=== PATIENT | female | born 1965 | race Caucasian/White ===

== ENCOUNTER 2016-11-15 22:43 | Emergency (ER) | payer OTHER ==
[~2016-11-15] VITALS: Ht 170.2 cm; Wt 149.7 kg
[~2016-11-15 22:43] MED LIST: BUTO10SP NS
[2016-11-15 22:59] VITALS: BP 114/74
--- NOTE | 2016-11-15 23:09 | NUR ---
PT AMBULATED TO OF
--- NOTE | 2016-11-15 23:46 | NUR ---
Patient being evaluated by physician.
[2016-11-16 00:40] VITALS: BP 121/77
--- NOTE | 2016-11-16 00:40 | NUR ---
Patient discharged with v/s stable. Written and verbal after care instructions given and explained. Patient alert, oriented and verbalized understanding of instructions. Ambulatory with steady gait. All questions addressed prior to discharge. ID band removed. Patient advised to follow up with PMD. Rx of Phenergan with Codeine syrup given. Patient educated on indication of medication including possible reaction and side effects. Opportunity to ask questions provided and answered.
== END 2016-11-16 00:40 | disposition home or self-care (01) ==
LOC: MED 22:43
DX: J06.9 Acute upper respiratory infection, unspecified (principal); F17.210 Nicotine dependence, cigarettes, uncomplicated; Z79.899 Other long term (current) drug therapy; Z88.5 Allergy status to narcotic agent
CPT/HCPCS: 99283

== ENCOUNTER 2016-11-28 17:30 | Emergency (ER) | payer OTHER ==
[~2016-11-28] VITALS: Ht 170.2 cm; Wt 159.8 kg
[2016-11-28 17:36] VITALS: BP 154/99
--- NOTE | 2016-11-28 18:28 | NUR ---
PATIENT PRESENTS TO ED WITH MIGRAINE THAT STARTED YESTERDAY. PT C/O FRONTAL PAIN. PT STATES SHE HAS NOT TAKEN ANY MEDICATION FOR PAIN RELIEF . DENIES N/V/D; SKIN IS PINK/WARM/DRY; AAOX4 WITH EVEN AND STEADY GAIT; LUNGS CLEAR BL; HR EVEN AND REGULAR; PT DENIES ANY FEVER, CP, SOB, OR COUGH AT THIS TIME; PATIENT STATES PAIN OF 0/10 AT THIS TIME; VSS; PATIENT POSITIONED FOR COMFORT; HOB ELEVATED; BEDRAILS UP X2; BED DOWN. ER MD MADE AWARE OF PT STATUS.
--- NOTE | 2016-11-28 18:28 | NUR ---
PT TO BED 8 AT THIS TIME. Addendum: 11/28/16 at 1831 by WILBUR PATIENT TO BED 7 AT THIS TIME.
--- NOTE | 2016-11-28 18:53 | NUR ---
DR. ROSENBERG PRESENT AT PT BEDSIDE.
[2016-11-28 19:03] VITALS: BP 154/99
--- NOTE | 2016-11-28 19:03 | NUR ---
Patient discharged with v/s stable. Written and verbal after care instructions given and explained. Patient alert, oriented and verbalized understanding of instructions. Ambulatory with steady gait. All questions addressed prior to discharge. ID band removed. Patient advised to follow up with PMD. Rx of BUTORPHANOL TARTRATE given. Patient educated on indication of medication including possible reaction and side effects. Opportunity to ask questions provided and answered.
== END 2016-11-28 19:03 | disposition home or self-care (01) ==
LOC: MED 17:30
DX: G43.909 Migraine, unspecified, not intractable, without status migrainosus (principal); R11.0 Nausea; H53.149 Visual discomfort, unspecified; Z88.5 Allergy status to narcotic agent; Z79.899 Other long term (current) drug therapy
CPT/HCPCS: 99283

== ENCOUNTER 2017-01-09 06:10 | Emergency (ER) | payer OTHER ==
[~2017-01-09] VITALS: Ht 170.2 cm; Wt 149.7 kg
[2017-01-09 06:17] VITALS: BP 152/83
--- NOTE | 2017-01-09 06:23 | NUR ---
PT TAKEN TO BED 5
--- NOTE | 2017-01-09 06:24 | NUR ---
Dr. Roque evaluating patient at bedside.
[2017-01-09 06:30] VITALS: BP 152/83
--- NOTE | 2017-01-09 06:33 | NUR ---
PATIENT PRESENTS TO ED WITH c/o headache . PT DENIES N/V/D; SKIN IS PINK/WARM/DRY; AAOX4 WITH EVEN AND STEADY GAIT; LUNGS CLEAR BL; HR EVEN AND REGULAR; PT DENIES ANY FEVER, CP, SOB, OR COUGH AT THIS TIME; PATIENT STATES PAIN OF 7/10 AT THIS TIME; VSS; PATIENT POSITIONED FOR COMFORT; HOB ELEVATED; BEDRAILS UP X2; BED DOWN. ER MD MADE AWARE OF PT STATUS.
--- NOTE | 2017-01-09 06:38 | NUR ---
Patient discharged with v/s stable. Written and verbal after care instructions given and explained. Patient alert, oriented and verbalized understanding of instructions. Ambulatory with steady gait. All questions addressed prior to discharge. ID band removed. Patient advised to follow up with PMD. Rx of Mutorphanol tartrate given. Patient educated on indication of medication including possible reaction and side effects. Opportunity to ask questions provided and answered.
== END 2017-01-09 06:38 | disposition home or self-care (01) ==
LOC: MED 06:10
DX: G89.4 Chronic pain syndrome (principal); F17.200 Nicotine dependence, unspecified, uncomplicated; Z88.5 Allergy status to narcotic agent; Z90.89 Acquired absence of other organs; Z90.49 Acquired absence of other specified parts of digestive tract
CPT/HCPCS: 99283

== ENCOUNTER 2017-10-23 20:46 | Emergency (ER) | payer OTHER ==
[~2017-10-23] VITALS: Ht 170.2 cm; Wt 165.7 kg
[2017-10-23 20:46] VITALS: BP 154/69
--- NOTE | 2017-10-23 21:24 | NUR ---
Dr. Gonzalez evaluating patient at bedside.
--- NOTE | 2017-10-23 21:30 | NUR ---
PT BIB SELF C/O HEADACHE AND COUGH. PT AWAKE AND ACTING APPROPRIATE, APPEARS TO BE IN NO ACUTE DISTRESS AT THIS TIME. PERRL. BL BS CLEAR THROUGH OUT, RR EVEN AND UNLABORED.
[2017-10-23 21:48] VITALS: BP 157/106
--- NOTE | 2017-10-23 21:52 | NUR ---
Patient discharged with v/s stable. Written and verbal after care instructions given and explained. Patient alert, oriented and verbalized understanding of instructions. Ambulatory with steady gait. All questions addressed prior to discharge. ID band removed. Patient advised to follow up with PMD. Rx of PROMETHAZINE WITH CODEINE AND BUTORPHANOL given. Patient educated on indication of medication including possible reaction and side effects. Opportunity to ask questions provided and answered.
== END 2017-10-23 21:52 | disposition home or self-care (01) ==
LOC: MED 20:46 → EDUNIT# 20:46 → MED 21:52
DX: G43.909 Migraine, unspecified, not intractable, without status migrainosus (principal); J06.9 Acute upper respiratory infection, unspecified
CPT/HCPCS: 99283

== ENCOUNTER 2019-01-09 21:14 | Emergency (ER) | payer OTHER ==
[~2019-01-09] VITALS: Ht 167.6 cm; Wt 145.1 kg
[2019-01-09 21:15] VITALS: BP 160/85
== END 2019-01-09 21:58 | disposition left against medical advice (07) ==
LOC: MED 21:14
DX: R05 Cough (principal); R51 Headache; Z53.21 Procedure and treatment not carried out due to patient leaving prior to being seen by health care provider

== ENCOUNTER 2019-01-24 18:52 | Emergency (ER) | payer OTHER ==
[~2019-01-24] VITALS: Ht 170.2 cm; Wt 145.1 kg
[2019-01-24 18:59] VITALS: BP 122/74
--- NOTE | 2019-01-24 19:15 | NUR ---
53/F presents to ED, c/o cough x1 week. denies fever/chills. Pt also c/o lower back pain, s/p cleaning around the house last night. No trauma/injury, no bruising/swelling/erythema noted. Pt awake and alert, skin normal color warm and dry, rr even and unlabored. lung sounds clear bl. hr even and regular. Hx sciatica, slipped disc, cigarette smoker (1 pack per 3-4 days) Otc naproxen and tylenol without relief
--- NOTE | 2019-01-24 19:36 | NUR ---
1913-- PT TAKEN TO RAD VIA W/C 1918-- PT RETURNED FROM RAD VIA WC
--- NOTE | 2019-01-24 19:50 | NUR ---
ISAAC ALBERTO EVALUATING PT
[2019-01-24] MEDS ORDERED: DEXAMETHASONE 10 MG/ML VIAL IM ONE (20:00)
[2019-01-24] MEDS ORDERED: KETOROLAC 30 MG/ML VIAL IM ONE (20:00)
[2019-01-24 20:22] VITALS: BP 122/74
--- NOTE | 2019-01-24 20:23 | NUR ---
Patient discharged with v/s stable. Written and verbal after care instructions given and explained. Patient alert, oriented and verbalized understanding of instructions. Ambulatory with to car. All questions addressed prior to discharge. ID band removed. Patient advised to follow up with PMD. Rx of ALBUTEROL, PREDNISONE, AND PROMETHAZINE/CODEINE given. Patient educated on indication of medication including possible reaction and side effects. Opportunity to ask questions provided and answered.
== END 2019-01-24 20:23 | disposition home or self-care (01) ==
LOC: MED 18:52
DX: S39.012A Strain of muscle, fascia and tendon of lower back, initial encounter (principal); J40 Bronchitis, not specified as acute or chronic; Z79.899 Other long term (current) drug therapy; Z88.5 Allergy status to narcotic agent; X58.XXXA Exposure to other specified factors, initial encounter; Y93.E5 Activity, floor mopping and cleaning; Y92.009 Unspecified place in unspecified non-institutional (private) residence as the place of occurrence of the external cause; Y99.8 Other external cause status
CPT/HCPCS: 71045; 96372; 99283; J1100; J1885

== ENCOUNTER 2019-01-27 16:42 | Emergency (ER) | payer OTHER ==
[~2019-01-27] VITALS: Ht 170.2 cm; Wt 145.1 kg
[2019-01-27 16:55] VITALS: BP 133/76
[2019-01-27 17:49] VITALS: BP 133/76
== END 2019-01-27 17:48 | disposition home or self-care (01) ==
LOC: MED 16:42
DX: G43.909 Migraine, unspecified, not intractable, without status migrainosus (principal); Z76.5 Malingerer [conscious simulation]; Z90.49 Acquired absence of other specified parts of digestive tract; Z79.899 Other long term (current) drug therapy; Z88.5 Allergy status to narcotic agent
CPT/HCPCS: 99282

== ENCOUNTER 2019-02-18 16:46 | Emergency (ER) | payer OTHER ==
[~2019-02-18] VITALS: Ht 170.2 cm; Wt 136.1 kg
[2019-02-18 17:06] VITALS: BP 143/80
--- NOTE | 2019-02-18 17:10 | NUR ---
PT TO ER LOBBY, PT ALERT AND AWAKE.
[2019-02-18 18:15] VITALS: BP 143/80
--- NOTE | 2019-02-18 18:15 | NUR ---
PT TAKEN TO BED 7.
--- NOTE | 2019-02-18 18:15 | NUR ---
53 Y/O FEMALE C/OCOLD SYMPTOMS X 4 DAYS; COUGHING, SNEEZING, RUNNY NOSE, LEFT EARACHE. PAIN IS ACUTE 5/10. LUNG SOUNDS CLEAR/DIMINISHED THROUGHOUT. COUGH IS PRODUCTIVE. A/OX4 FOLLOWS COMMANDS; ERMD MADE AWARE OF STATUS SIDE RAILS X1. WILL CONTINUE TO MONITOR. PMH- ARTHRITIS, MIGRAINES RX:DENIES NKDA
--- NOTE | 2019-02-18 19:11 | NUR ---
RECIEVED REPORT FROM LEENA BAÑUELOS. ASSUMED CARE AT THIS TIME.
--- NOTE | 2019-02-18 19:49 | NUR ---
Patient discharged with v/s stable. Written and verbal after care instructions given and explained. Patient alert, oriented and verbalized understanding of instructions. Ambulatory with steady gait. All questions addressed prior to discharge. ID band removed. Patient advised to follow up with PMD. Rx of azithromycin, albuterol, and guiatussien given. Patient educated on indication of medication including possible reaction and side effects. Opportunity to ask questions provided and answered.
== END 2019-02-18 19:49 | disposition home or self-care (01) ==
LOC: MED 16:46
DX: J20.9 Acute bronchitis, unspecified (principal); G43.909 Migraine, unspecified, not intractable, without status migrainosus; M19.90 Unspecified osteoarthritis, unspecified site; Z90.49 Acquired absence of other specified parts of digestive tract; Z79.899 Other long term (current) drug therapy
CPT/HCPCS: 99283

== ENCOUNTER 2019-04-18 22:13 | Emergency (ER) | payer OTHER ==
[~2019-04-18] VITALS: Ht 167.6 cm; Wt 171.0 kg
[2019-04-18 22:19] VITALS: BP 152/93
--- NOTE | 2019-04-18 22:40 | NUR ---
X-Ray at bedside.
--- NOTE | 2019-04-18 23:03 | NUR ---
ATTEMPTED TO FLU SWAB PT, PT STATED "I DON'T WANT THE SWAB DONE, I KNOW I DON'T HAVE THE FLU"
--- NOTE | 2019-04-18 23:17 | NUR ---
BIBS C/O PRODUCTIVE COUGH WITH THICK SPUTUM + HEADACHE X3 DAYS NON PROVOKED. NO SOB/CHEST PAIN REPORTED. LUNG SOUNDS CLEAR BILAT LOBES. NO N/V/D REPORTED. PT DID NOT WANT FLU SWAB PERFORMED, PT STATED "I KNOW I DONT HAVE THE FLU". NKA
[2019-04-18] MEDS ORDERED: HYDROcodone/APAP 5/325 MG 1 TAB TAB PO ONE (23:30)
[2019-04-18] MEDS ORDERED: predniSONE 20 MG TAB PO ONE (23:30)
[2019-04-18] MEDS ORDERED: DEXAMETHASONE 10 MG/ML VIAL PO ONE (23:35)
--- NOTE | 2019-04-18 23:41 | NUR ---
PT IS DRIVING SELF HOME, WILL HOLD Jingshi Wanwei.
[2019-04-18 23:42] VITALS: BP 152/93
--- NOTE | 2019-04-18 23:45 | NUR ---
Patient discharged with v/s stable. Written and verbal after care instructions given and explained. Patient alert, oriented and verbalized understanding of instructions. Ambulatory with steady gait. All questions addressed prior to discharge. ID band removed. Patient advised to follow up with PMD. Rx of AFRIN, NORCO, AZITHROMYCIN given. Patient educated on indication of medication including possible reaction and side effects. Opportunity to ask questions provided and answered.
== END 2019-04-18 23:45 | disposition home or self-care (01) ==
LOC: MED 22:13
DX: J40 Bronchitis, not specified as acute or chronic (principal); Z79.899 Other long term (current) drug therapy; Z90.49 Acquired absence of other specified parts of digestive tract
CPT/HCPCS: 71045; 99283; J1100; J7512

== ENCOUNTER 2019-07-07 10:16 | Emergency (ER) | payer OTHER ==
[~2019-07-07] VITALS: Ht 170.2 cm; Wt 140.6 kg
--- NOTE | 2019-07-07 10:21 | NUR ---
PT TAKEN TO BED 11.
[2019-07-07 10:25] VITALS: BP 154/94
--- NOTE | 2019-07-07 10:28 | NUR ---
53 Y/O FEMALE C/O MIGRAINE HEADACHE SINCE YESTERDAY. STATES 7/10 CONSTANT THROBBING PAIN, DENIES CHANGE OF VISION. STATES SHE TAKES MEDICATION FOR MIGRAINES, TOOK IT WITH NO RELIEF. DENIES N/V/D. AFEBRILE. SITTING UPRIGHT IN CHAIR, RR EVEN AND UNLABORED. CALM AND PLEASANT. VSS MEDHX: MIGRAINES, FIBROMYALGIA
--- NOTE | 2019-07-07 10:37 | NUR ---
DR WIGGINS EXAMINING PT
[2019-07-07 10:57] VITALS: BP 154/94
--- NOTE | 2019-07-07 10:57 | NUR ---
Patient discharged with v/s stable. Written and verbal after care instructions given and explained. Patient alert, oriented and verbalized understanding of instructions. Ambulatory with steady gait. All questions addressed prior to discharge. ID band removed. Patient advised to follow up with PMD. Rx of BUTOPHANOL NASAL SPRAY given. Patient educated on indication of medication including possible reaction and side effects. Opportunity to ask questions provided and answered.
== END 2019-07-07 10:57 | disposition home or self-care (01) ==
LOC: MED 10:16
DX: G43.909 Migraine, unspecified, not intractable, without status migrainosus (principal)
CPT/HCPCS: 99281; 99283

== ENCOUNTER 2019-09-17 19:19 | Emergency (ER) | payer OTHER ==
[~2019-09-17] VITALS: Ht 170.2 cm; Wt 166.5 kg
[2019-09-17 19:24] VITALS: BP 141/95
--- NOTE | 2019-09-17 19:29 | NUR ---
PT AMBULATED CHAIR A.
[2019-09-17 19:32] VITALS: BP 141/95
--- NOTE | 2019-09-17 19:35 | NUR ---
AT BEDSIDE EXAMINING PT
--- NOTE | 2019-09-17 19:38 | NUR ---
PT ELOPED FROM FACILITY
== END 2019-09-17 19:38 | disposition left against medical advice (07) ==
LOC: MED 19:19
DX: G89.29 Other chronic pain (principal); G43.909 Migraine, unspecified, not intractable, without status migrainosus; F11.20 Opioid dependence, uncomplicated; Z76.0 Encounter for issue of repeat prescription; Z79.899 Other long term (current) drug therapy
CPT/HCPCS: 99281

== ENCOUNTER 2019-11-03 18:16 | Emergency (ER) | payer OTHER ==
[~2019-11-03] VITALS: Ht 167.6 cm; Wt 131.5 kg
[2019-11-03 18:33] VITALS: BP 123/52
--- NOTE | 2019-11-03 20:35 | NUR ---
PATIENT LEFT WITHOUT BEING SEEN BY DR. CARLSON. NO FURTHER CARE PROVIDED FOR PATIENT.
== END 2019-11-03 20:53 | disposition left against medical advice (07) ==
LOC: MED 18:16
DX: R05 Cough (principal); Z53.21 Procedure and treatment not carried out due to patient leaving prior to being seen by health care provider

== ENCOUNTER 2020-06-05 22:58 | Emergency (ER) | payer OTHER | END 2020-06-05 23:30 | disposition left against medical advice (07) | LOC: MED 22:58 | DX: R51.9 Headache, unspecified (principal); Z53.21 Procedure and treatment not carried out due to patient leaving prior to being seen by health care provider ==

== ENCOUNTER 2021-01-02 00:28 | Emergency (ER) | payer OTHER ==
[~2021-01-02] VITALS: Ht 170.2 cm; Wt 169.6 kg
[2021-01-02 00:30] VITALS: BP 151/87
== END 2021-01-02 01:10 | disposition left against medical advice (07) ==
LOC: MED 00:28
DX: H92.02 Otalgia, left ear (principal); Z53.21 Procedure and treatment not carried out due to patient leaving prior to being seen by health care provider

== ENCOUNTER 2021-01-11 16:49 | Emergency (ER) | payer OTHER ==
[~2021-01-11] VITALS: Ht 167.6 cm; Wt 166.5 kg
[2021-01-11 17:06] VITALS: BP 154/94
--- NOTE | 2021-01-11 17:12 | NUR ---
PT STATES SHE DOES NOT WANT TO SEE A PA.
--- NOTE | 2021-01-11 17:48 | NUR ---
NO NURSING INTERVENTIONS DONE NO COMPLETE ASSESSMENT NEEDED.
[2021-01-11] MEDS ORDERED: ALBU0.0912 IH (18:13)
[2021-01-11] MEDS ORDERED: FLONAS NS (18:13)
[2021-01-11 18:20] VITALS: BP 154/94
--- NOTE | 2021-01-11 18:20 | NUR ---
Patient discharged with v/s stable. LEFT WITH DISCHARGE INSTRUCTIONS AND NOT GIVEN TO PATIENT. ID BAND REMOVED.
== END 2021-01-11 18:20 | disposition home or self-care (01) ==
LOC: MED 16:49
DX: J01.90 Acute sinusitis, unspecified (principal); J45.909 Unspecified asthma, uncomplicated; I10 Essential (primary) hypertension; E66.9 Obesity, unspecified
CPT/HCPCS: 99282

== ENCOUNTER 2021-04-23 12:41 | Emergency (ER) | payer OTHER ==
[~2021-04-23] VITALS: Ht 157.5 cm; Wt 59.0 kg
[~2021-04-23 12:41] MED LIST changes: +ALBU0.0912 IH; +FLONAS NS
--- NOTE | 2021-04-23 12:54 | NUR ---
PATIENT LEFT WITHOUT BEING SEEN BY DR. KNOX. NO FURTHER CARE PROVIDED FOR PATIENT.
[2021-04-23 13:13] VITALS: BP 143/87
== END 2021-04-23 12:54 | disposition left against medical advice (07) ==
LOC: MED 12:41
DX: R11.2 Nausea with vomiting, unspecified (principal); Z53.21 Procedure and treatment not carried out due to patient leaving prior to being seen by health care provider

== ENCOUNTER 2021-04-29 20:07 | Emergency (ER) | payer OTHER ==
--- NOTE | 2021-04-29 21:04 | NUR ---
CALLED TO TRIAGE FROM LOBBY AND OUTSIDE, NO ANSWER.
--- NOTE | 2021-04-29 21:10 | NUR ---
CALLED IN ER AND OUTSIDE NO ANSWER.
--- NOTE | 2021-04-29 21:13 | NUR ---
LWBS. PT STATES SHE LEFT.
== END 2021-04-29 21:04 | disposition left against medical advice (07) ==
LOC: MED 20:07
DX: R51.9 Headache, unspecified (principal); Z53.21 Procedure and treatment not carried out due to patient leaving prior to being seen by health care provider

== ENCOUNTER 2021-05-06 18:43 | Emergency (ER) | payer OTHER ==
[~2021-05-06] VITALS: Ht 170.2 cm; Wt 175.5 kg
[2021-05-06 19:07] VITALS: BP 143/96
--- NOTE | 2021-05-06 19:10 | NUR ---
PT TAKEN TO CHAIR B
[2021-05-06] MEDS ORDERED: BUTORPHANOL 2 MG/ML VIAL IM ONE (19:20)
[2021-05-06] MEDS ORDERED: ONDANSETRON 4 MG ODT PO ONE (19:20)
--- NOTE | 2021-05-06 19:50 | NUR ---
SEE COMPLETE ASSESSMENT
[2021-05-06] MEDS ORDERED: BUTO10SP10 NS (19:54)
--- NOTE | 2021-05-06 20:02 | NUR ---
Patient discharged with v/s stable. Written and verbal after care instructions given and explained. Patient alert, oriented and verbalized understanding of instructions. Ambulatory with steady gait. All questions addressed prior to discharge. ID band removed. Patient advised to follow up with PMD. Rx of BUTORPHANAL given. Patient educated on indication of medication including possible reaction and side effects. Opportunity to ask questions provided and answered.
== END 2021-05-06 20:02 | disposition home or self-care (01) ==
LOC: MED 18:43
DX: G43.909 Migraine, unspecified, not intractable, without status migrainosus (principal); Z88.5 Allergy status to narcotic agent; Z88.8 Allergy status to other drugs, medicaments and biological substances
CPT/HCPCS: 99283; J0595; Q0162

== ENCOUNTER 2021-05-24 23:39 | Emergency (ER) | payer OTHER ==
[~2021-05-24] VITALS: Ht 167.6 cm; Wt 149.7 kg
[~2021-05-24 23:39] MED LIST changes: +BUTO10SP10 NS
[2021-05-24 23:47] VITALS: BP 153/105
--- NOTE | 2021-05-25 00:07 | NUR ---
pt taken to lobby.
[2021-05-25] MEDS ORDERED: BUTO10SP NS (00:24)
[2021-05-25 00:51] VITALS: BP 153/105
--- NOTE | 2021-05-25 00:51 | NUR ---
Patient discharged with v/s stable. Written and verbal after care instructions given and explained. Patient alert, oriented and verbalized understanding of instructions. Ambulatory with steady gait. All questions addressed prior to discharge. ID band removed. Patient advised to follow up with PMD. Rx of butorphanol tartate given. Patient educated on indication of medication including possible reaction and side effects. Opportunity to ask questions provided and answered.
== END 2021-05-25 00:51 | disposition home or self-care (01) ==
LOC: MED 23:39
DX: G43.909 Migraine, unspecified, not intractable, without status migrainosus (principal); Z79.899 Other long term (current) drug therapy; Z88.5 Allergy status to narcotic agent; Z88.8 Allergy status to other drugs, medicaments and biological substances
CPT/HCPCS: 99283

== ENCOUNTER 2021-06-06 11:40 | Emergency (ER) | payer OTHER ==
[~2021-06-06] VITALS: Ht 167.6 cm; Wt 154.2 kg
[2021-06-06 11:42] VITALS: BP 151/95
--- NOTE | 2021-06-06 11:52 | NUR ---
55 Y/O F AMBULATED TO BED 2 USING CANE OTHERWISE STEADY GAIT, C/O LEFT SIDED MIGRAINE HEADACHE X YESTERDAY. RECENT IN FAMILY CAUSING STRESS AND A LOT OF CRYING. ALLERDIES: MORPHINE, PROCHLORPERAZINE PMD: MIGRAINES, ARTHRITS
--- NOTE | 2021-06-06 12:00 | NUR ---
ISAAC WATSON AT BEDSIDE FOR MSE
[2021-06-06] MEDS ORDERED: DEXA4TAB5 PO (12:23)
[2021-06-06] MEDS ORDERED: BUTO10SP10 NS (12:23)
[2021-06-06 12:39] VITALS: BP 142/80
--- NOTE | 2021-06-06 12:42 | NUR ---
Patient discharged with v/s stable. Written and verbal after care instructions given and explained. Patient alert, oriented and verbalized understanding of instructions. Ambulatory with steady gait. All questions addressed prior to discharge. ID band removed. Patient advised to follow up with PMD. Rx of butorphanol tartrate, dexamethasone given. Patient educated on indication of medication including possible reaction and side effects. Opportunity to ask questions provided and answered.
== END 2021-06-06 12:39 | disposition home or self-care (01) ==
LOC: MED 11:40
DX: G43.909 Migraine, unspecified, not intractable, without status migrainosus (principal); Z79.899 Other long term (current) drug therapy; Z88.5 Allergy status to narcotic agent; Z88.8 Allergy status to other drugs, medicaments and biological substances
CPT/HCPCS: 99283

== ENCOUNTER 2021-07-05 18:39 | Emergency (ER) | payer OTHER ==
[~2021-07-05] VITALS: Ht 167.6 cm; Wt 171.9 kg
[~2021-07-05 18:39] MED LIST changes: +DEXA4TAB5 PO
[2021-07-05 18:50] VITALS: BP 147/61
--- NOTE | 2021-07-05 19:08 | NUR ---
55 y/o F BIB self from home via walker c/o migraine since last night. Patient A&Ox4, states 10/20, throbbing/intermittent, non-radiating headache. States recent stressors of cousin's one year ago. States Naproxen at 1400 today without relief. Patient states she was prescribed butorphanol nasal spray and is requesting a new prescription sent to pharmacy. Patient denies dizziness, n/v/d, blurry vision, hearing loss, syncope, falls. Bed locked in lowest position, side rails x 1. PMH: migraines Meds: A: ultram, sumatriptan (swelling)
--- NOTE | 2021-07-05 19:09 | NUR ---
Report and transfer of care endorse to LEENA Clay.
--- NOTE | 2021-07-05 19:17 | NUR ---
AT BEDSIDE EXAMINING PT.
[2021-07-05] MEDS ORDERED: BUTO10SP10 NS (19:22)
[2021-07-05 19:28] VITALS: BP 147/61
--- NOTE | 2021-07-05 19:28 | NUR ---
Patient discharged with v/s stable. Written and verbal after care instructions given and explained. Patient alert, oriented and verbalized understanding of instructions. Ambulatory with steady gait. All questions addressed prior to discharge. ID band removed. Patient advised to follow up with PMD. Rx of BUTORPHANOL given. Patient educated on indication of medication including possible reaction and side effects. Opportunity to ask questions provided and answered.
== END 2021-07-05 19:28 | disposition home or self-care (01) ==
LOC: MED 18:39
DX: G43.909 Migraine, unspecified, not intractable, without status migrainosus (principal); E66.01 Morbid (severe) obesity due to excess calories; Z63.4 Disappearance and death of family member; Z79.899 Other long term (current) drug therapy; Z88.5 Allergy status to narcotic agent; Z88.8 Allergy status to other drugs, medicaments and biological substances; Z68.44 Body mass index [BMI] 60.0-69.9, adult
CPT/HCPCS: 99283

== ENCOUNTER 2021-08-13 22:30 | Emergency (ER) | payer OTHER ==
[~2021-08-13] VITALS: Ht 170.2 cm; Wt 140.6 kg
[2021-08-13 23:14] VITALS: BP 106/65
--- NOTE | 2021-08-13 23:42 | NUR ---
Patient ambulated to bed 4.
--- NOTE | 2021-08-14 00:08 | NUR ---
Dr. Brown at bedside to exam patient.
--- NOTE | 2021-08-14 00:12 | NUR ---
pt assessment completed by shiela. no nursing interventions required at this time.
[2021-08-14] MEDS ORDERED: DEC4 PO (00:22)
[2021-08-14] MEDS ORDERED: ROBAC PO (00:22)
[2021-08-14 00:35] VITALS: BP 106/65
--- NOTE | 2021-08-14 00:35 | NUR ---
Patient discharged with v/s stable. Written and verbal after care instructions given and explained. Patient alert, oriented and verbalized understanding of instructions. Ambulatory with steady gait via walker. All questions addressed prior to discharge. ID band removed. Patient advised to follow up with PMD. Rx of Dexamethasone and Codeine Phosphate/Guaifenesi given. Patient educated on indication of medication including possible reaction and side effects. Opportunity to ask questions provided and answered.
== END 2021-08-14 00:35 | disposition home or self-care (01) ==
LOC: MED 22:30
DX: Z76.0 Encounter for issue of repeat prescription (principal); M19.90 Unspecified osteoarthritis, unspecified site; Z79.899 Other long term (current) drug therapy; Z88.5 Allergy status to narcotic agent; Z88.8 Allergy status to other drugs, medicaments and biological substances
CPT/HCPCS: 99281

== ENCOUNTER 2021-09-28 21:28 | Emergency (ER) | payer OTHER ==
[~2021-09-28] VITALS: Ht 170.2 cm; Wt 140.6 kg
[~2021-09-28 21:28] MED LIST changes: +DEC4 PO; +ROBAC PO
[2021-09-28 21:34] VITALS: BP 151/112
--- NOTE | 2021-09-28 21:44 | NUR ---
TO LOBBY FOLLOWING TRIAGE
--- NOTE | 2021-09-28 23:25 | NUR ---
PT CALLED OUTSIDE AND IN LOBBY WITH NO ANSWER.
--- NOTE | 2021-09-28 23:30 | NUR ---
PT CALLED OUTSIDE AND IN LOBBY WITH NO ANSWER.PATIENT LEFT WITHOUT BEING SEEN BY DR. CHOWDARY. NO FURTHER CARE PROVIDED FOR PATIENT.
== END 2021-09-28 23:30 | disposition left against medical advice (07) ==
LOC: MED 21:28
DX: G43.909 Migraine, unspecified, not intractable, without status migrainosus (principal); Z53.21 Procedure and treatment not carried out due to patient leaving prior to being seen by health care provider

== ENCOUNTER 2021-09-30 11:44 | Emergency (ER) | payer OTHER ==
[~2021-09-30] VITALS: Ht 170.2 cm; Wt 153.3 kg
[2021-09-30 12:02] VITALS: BP 146/82
--- NOTE | 2021-09-30 12:55 | NUR ---
PT UP FOR D/C BY ISAAC PRATHER. ATTEMPTED TO D/C PT BUT NOT FOUND IN LOBBY/OUTSIDE. PT LEFT WITHOUT D.C PAPERS.
== END 2021-09-30 12:55 | disposition home or self-care (01) ==
LOC: MED 11:44
DX: G43.909 Migraine, unspecified, not intractable, without status migrainosus (principal); Z76.0 Encounter for issue of repeat prescription; M19.90 Unspecified osteoarthritis, unspecified site; Z79.899 Other long term (current) drug therapy; Z88.5 Allergy status to narcotic agent; Z88.8 Allergy status to other drugs, medicaments and biological substances
CPT/HCPCS: 99281

== ENCOUNTER 2021-10-17 17:41 | Emergency (ER) | payer OTHER ==
[~2021-10-17] VITALS: Ht 167.6 cm; Wt 149.7 kg
[2021-10-17 18:00] VITALS: BP 166/82
[2021-10-17] MEDS ORDERED: BUTO10SP10 NS ×2 (18:25→18:48)
[2021-10-17] MEDS ORDERED: ONDA-188 PO ×2 (18:25→18:48)
--- NOTE | 2021-10-17 18:39 | NUR ---
Patient discharged with v/s stable. Written and verbal after care instructions ABOUT MEDICINE REFILL AND MIGRAINE HEADACHE given and explained. Patient alert, oriented and verbalized understanding of instructions. Ambulatory with steady gait. All questions addressed prior to discharge. ID band removed. Patient advised to follow up with PMD. Rx of ZOFRAN AND BUTORPHANOL TARTRATE given. Patient educated on indication of medication including possible reaction and side effects. Opportunity to ask questions provided and answered.
== END 2021-10-17 18:39 | disposition home or self-care (01) ==
LOC: MED 17:41
DX: R51.9 Headache, unspecified (principal); Z76.0 Encounter for issue of repeat prescription; Z88.5 Allergy status to narcotic agent; Z79.899 Other long term (current) drug therapy
CPT/HCPCS: 99281

== ENCOUNTER 2021-11-08 16:01 | Emergency (ER) | payer OTHER ==
[~2021-11-08] VITALS: Ht 167.6 cm; Wt 158.8 kg
[~2021-11-08 16:01] MED LIST changes: +ONDA-188 PO
[2021-11-08 16:23] VITALS: BP 150/93
--- NOTE | 2021-11-08 16:30 | NUR ---
PT AMBULATED TO ER BED 5 WITH WALKER
--- NOTE | 2021-11-08 16:38 | NUR ---
Dr Campbell at bedside for evaluation
--- NOTE | 2021-11-08 16:47 | NUR ---
PATIENT ELOPED FROM FACILITY. DISCHARGE INSTRUCTIONS NOT GIVEN TO PATIENT. DR. HUITRON NOTIFIED.
== END 2021-11-08 16:47 | disposition left against medical advice (07) ==
LOC: MED 16:01
DX: G43.909 Migraine, unspecified, not intractable, without status migrainosus (principal); E66.9 Obesity, unspecified; Z76.5 Malingerer [conscious simulation]; Z76.0 Encounter for issue of repeat prescription; Z88.5 Allergy status to narcotic agent; Z88.8 Allergy status to other drugs, medicaments and biological substances; Z79.899 Other long term (current) drug therapy; Z68.43 Body mass index [BMI] 50.0-59.9, adult
CPT/HCPCS: 99281

== ENCOUNTER 2021-11-16 12:38 | Emergency (ER) | payer OTHER ==
--- NOTE | 2021-11-16 12:47 | NUR ---
CALLED PT, NOT SEEN IN LOBBY
--- NOTE | 2021-11-16 12:50 | NUR ---
WALKED OUTSIDE LOBBY, CALLED PT, NOT SEEN
--- NOTE | 2021-11-16 13:08 | NUR ---
PATIENT LEFT WITHOUT BEING SEEN BY DR. RIVAS. NO FURTHER CARE PROVIDED FOR PATIENT.
--- NOTE | 2021-11-16 13:08 | NUR ---
PT CALLED NOT SEEN IN LOBBY
== END 2021-11-16 12:47 | disposition left against medical advice (07) ==
LOC: MED 12:38
DX: M54.50 Low back pain, unspecified (principal); Z53.21 Procedure and treatment not carried out due to patient leaving prior to being seen by health care provider